=== PATIENT | male | born 1970 | race Caucasian/White ===

== ENCOUNTER 2018-05-23 19:20 | Emergency (ER) | payer MEDICAID ==
[~2018-05-23] VITALS: Ht 185.4 cm; Wt 84.2 kg
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
--- NOTE | 2018-05-23 20:57 | NUR ---
pt unable to stay still for EKG at this time.
[2018-05-23 20:59] VITALS: BP 111/77
--- NOTE | 2018-05-23 20:59 | NUR ---
PT. IN ROOM SPEAKING LOUDLY TO SELF; TANGENTIAL THOUGHTS. PT. REPORTS "I USUALLY USE METH, I LOVE DRUGS, I DO MUCH I CAN, WHENEVER I CAN, WHATEVER I CAN GET. BUT I DIDN'T DO ANY TODAY. I AM FEAKING OUT". PT. OFFERED REASSURANCE BUT CONTINUES WITH TANGENTAL THIKING/SPEAKING. CONTINUOUS PULSE OX, B/P MONITORS IN PLACE. CALL LIGHT IN REACH. ALL SAFETY MEASURES OBSERVED.
== END 2018-05-23 21:32 | disposition home or self-care (01) ==
LOC: ED 21:25
DX: F15.122 Other stimulant abuse with intoxication with perceptual disturbance (principal); F31.9 Bipolar disorder, unspecified; F20.9 Schizophrenia, unspecified
CPT/HCPCS: 99283

== ENCOUNTER 2020-03-24 12:27 | Emergency (ER) | payer MEDICAID ==
[~2020-03-24] VITALS: Ht 188 cm; Wt 88.1 kg
[2020-03-24] MEDS ORDERED: LIDOCAINE-MPF 1%, 5ML INFIL ONE (14:00)
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
[2020-03-24] MEDS ORDERED: LIDOCAINE-MPF 1%, 5ML ONE (14:13)
--- NOTE | 2020-03-24 14:30 | NUR ---
Tomer BLACKMAN at bedside for I&D
--- NOTE | 2020-03-24 14:47 | NUR ---
[facility] in ED - 03/24/[address] Del Valle hospitalist at bedside for eval
[2020-03-24 15:14] VITALS: BP 120/70
== END 2020-03-24 15:17 | disposition home or self-care (01) ==
LOC: ED 15:01
DX: L03.114 Cellulitis of left upper limb (principal); L03.113 Cellulitis of right upper limb; L02.412 Cutaneous abscess of left axilla
CPT/HCPCS: 10060; 99283

== ENCOUNTER 2020-03-28 12:04 | Emergency (ER) | payer MEDICAID ==
[~2020-03-28] VITALS: Ht 188 cm; Wt 86.5 kg
--- NOTE | 2020-03-28 12:11 | NUR ---
SENIOR MATERIALS ANALYST: PT [id number].
[2020-03-28 12:18] VITALS: BP 102/68
--- NOTE | 2020-03-28 13:02 | NUR ---
WING COMMANDER: PT TO ROOM FROM LOBBY
--- NOTE | 2020-03-28 13:10 | NUR ---
LEFT UNDERARM NOTED TO HAVE PACKING AT ABCESS SITE
== END 2020-03-28 13:52 | disposition home or self-care (01) ==
LOC: ED 13:50
DX: Z48.01 Encounter for change or removal of surgical wound dressing (principal); R00.0 Tachycardia, unspecified; F17.200 Nicotine dependence, unspecified, uncomplicated
CPT/HCPCS: 99281